=== PATIENT | male | born 1960 | race African-American/Black ===

== ENCOUNTER 2016-09-25 18:30 | Emergency (ER) | payer MEDICARE ==
--- NOTE | ~2016-09-25 | CT99 ---
[facility]. [facility] A Service of [facility] & [facility] RADIOLOGY TEXT RESULTS PATIENT: JASS THOMPSON LOCATION: SED : 56 UNIT #: [id number] AGE: [address]: Mo Narayanan MD SEX: M ORDER DR: [id number] [address] [address] [id number] MR#: [id number] Acc #: [id number] NAME: JASS THOMPSON : 1960 SEX: M STUDY DATE/TIME: 09/25/2016 20:10 UNIT: SED ROOM: STUDY DESCRIPTION: CT Maxillofacial Area W Cont Attending Physician: Mo Narayanan M.D. Ordering Physician: Mo Narayanan M.D. Primary Care Physician: Salas Green M.D. MEDICAL IMAGING REPORT This report is preliminary unless electronic signature is present. EXAM CT facial bones with contrast, 09/25/2016 HISTORY 56-year-old male with facial swelling and headache for 6 days. Swelling above right eye. No specific injury. History of previous sinus surgery and chronic sinusitis. COMPARISON CT sinuses 12/18/2007 TECHNIQUE Axial images performed through the facial bones following administration of IV contrast. Coronal reformatted images. This CT exam was performed with one or more of the following radiation dose reduction techniques: Automatic exposure control, adjustment of mA and/or kV according to patient size, and iterative reconstruction. FINDINGS There are extensive postsurgical changes from frontal craniotomy. There is extensive heterogeneous opacification throughout the paranasal sinuses with erosions of the anterior right maxillary wall, posterior right maxillary wall, posterior left maxillary wall, and posterior wall of the sella. There is also questionable erosion of the posterior frontal sinus wall. Developing subdural empyema not excluded. There may also be communication through the right lateral frontal sinus wall with a suspicious ill-defined rim-enhancing fluid collection in the right supraorbital soft tissues measuring 4.5 x 0.7 cm. There is overlying soft tissue edema and swelling. Developing right supraorbital abscess is not excluded. There is mixed hyperdense material throughout the paranasal sinuses, suggesting chronicity of disease. Correlation for any known history of fungal disease recommended. There is complete opacification of the mastoid air cells. [facility]. [facility] A Service of [facility] RADIOLOGY TEXT RESULTS PATIENT: JASS THOMPSON LOCATION: SED : 56 UNIT #: [id number] AGE: [address]: Mo Narayanan MD SEX: M ORDER DR: No evidence of acute fracture. There are several prominent cervical chain lymph nodes bilaterally, likely reactive. IMPRESSION 1. Markedly abnormal exam. There are postsurgical changes from frontal craniotomy. There is extensive disease noted throughout all of the paranasal sinuses and mastoid air cells. The material within the sinuses is heterogeneous and hyperdense, suggesting chronic disease. Fungal etiologies may be considered in the appropriate clinical setting. There appear to be erosions involving the right anterior and posterior maxillary sinus sampson, left posterior maxillary sinus wall, posterior wall of the sella/sphenoid sinus, and anterior lateral wall of the right frontal sinus and posterior wall of the frontal sinus. Developing subdural empyema is not excluded. There is also an ill-defined fluid collection in the right supraorbital region with overlying soft tissue swelling. The fluid collection is somewhat ill defined and rim-enhancing measuring 4.5 x 0.7 cm. Developing right supraorbital soft tissue abscess is not excluded. There is also complete opacification of the mastoid air cells. Correlation with patient surgical history and any prior imaging studies is suggested. Further characterization with non-emergent contrast-enhanced brain MRI and orbital MRI is recommended. 2. Multiple prominent cervical chain lymph nodes, likely reactive. Dictated by... Carlos Gaona M.D. THIS IS AN ELECTRONICALLY VERIFIED REPORT Carlos Gaona M.D. at 09/26/2016 9:08 AM SUZE/garret TD: 09/26/2016 00:04 JOB #: [id number] MEDICAL IMAGING REPORT Page 1 of 1
[~2016-09-25 18:30] MED LIST: ADVAIR 5001 DISK W/D PO; ALBUTEROL17 GM INH; ALBUTEROL2.5 MG/0.5 IH; ATIVAN PO; COMBIVENT INH14.7 G1 IH; COMBIVENT INH14.7 GM INH; COMBIVENT U/D3 M2 INH; DULERA INH; ENTEX PSE1 CAP.SR . PO; FAMOTIDINE; HYCODAN60 ML 5MG/ PO; HYDROCODONE/APA1 T15 PO; LEVAQUIN PO; LORTAB 5/500 TA1 TA1; MEDROL DOSEPAK4 MG DOB; MEDROL PO; MEDROL4 MG/DOSE-; NASONEX17 GM; PHENERGAN PO; SINGULAIR PO; XOPENEX0.63 MG/3 IH; ZITHROMAX PO
[2016-09-25] MEDS ORDERED: CRESTOR10 MG (18:56)
[2016-09-25] MEDS ORDERED: DULERA 100 MCG/13 GM INH (18:56)
[2016-09-25] MEDS ORDERED: ASTELIN (18:57)
[2016-09-25] MEDS ORDERED: CLARITIN10 M3 DOB (18:57)
[2016-09-25 19:34] LABS: BASOPHIL% 0.6 % (0-2.5); EOSINOPHIL% 25.3 % (0.0-7.0); HEMATOCRIT 43.7 % (38.0-50.0); HEMOGLOBIN 14.7 gm/dL (13.0-16.0); LYMPHOCYTE# 1.7 X10e3 (1.0-3.5); MEAN CELL VOLUME 89.1 FL (83-96); MEAN CORPUSCULAR HEMOGLOBIN 30.1 PG (28-34); MEAN CORPUSCULAR HGB CONC 33.7 g/dL (30-36); MEAN PLATELET VOLUME 9.6 FL (6.5-11.5); MONOCYTE# 0.8 X10e3 (0-1.0); NEUTROPHIL# 3.3 X10e3 (1.5-7.1); NEUTROPHIL% 42.1 % (40-75); PLATELET COUNT 241 X10e3 (140-420); RED BLOOD COUNT 4.91 X10e (3.90-5.60); RED CELL DISTRIBUTION WIDTH 13.9 % (11.0-15.5); WHITE BLOOD COUNT 7.8 X10e3 (4.0-10.5)
[2016-09-25 19:38] LABS: DIFF IND NO
[2016-09-25 19:46] LABS: BUN/CREATININE RATIO 10.9; CREATININE SERUM 1.1 mg/dL (0.6-1.4); GLOM FILT RATE Estimated 85.3 mL/min (>60); POTASSIUM 3.8 mmol/L (3.5-5.1)
== END 2016-09-25 22:21 | disposition hospice, home (50) ==
LOC: SED 18:30
PROVIDERS: Emergency Medicine
DX: J32.1 Chronic frontal sinusitis (principal)
CPT/HCPCS: 36415; 70487; 80048; 85025; 99285; Q9967